=== PATIENT | male | born 1930 | race Caucasian/White ===

== ENCOUNTER 2019-04-11 13:58 | Outpatient (CLI) | payer MEDICARE, OTHER | END 2019-04-11 13:59 | disposition critical access hospital (66) | LOC: EMS 13:58 | PROVIDERS: ATTEND Surgery | DX: R46.4 Slowness and poor responsiveness (principal); R53.1 Weakness | CPT/HCPCS: A0425; A0429 ==

== ENCOUNTER 2019-04-11 14:12 | Inpatient (IN) | payer MEDICARE, OTHER ==
[2019-04-11] MEDS ORDERED: SODIUM CHLORIDE 0.9% 1,000 ML IV ONE ×3 (14:28→15:54)
[2019-04-11 14:50] LABS: BILIRUBIN,URINE NEGATIVE (NEGATIVE); GLUCOSE, URINE (UA) NEGATIVE (NEGATIVE); KETONES,URINE (UA) 15 mg/dL (NEGATIVE); LEUKOCYTE ESTERASE, URINE LARGE (NEGATIVE); NITRITE,URINE POSITIVE (NEGATIVE); OCCULT BLOOD,URINE LARGE (NEGATIVE); PROTEIN,URINE 100 mg/dL (NEGATIVE); UROBILINOGEN,URINE 0.2 (NORMAL) E.U./dL (NORMAL)
[2019-04-11 14:53] LABS: CLARITY,URINE CLOUDY (CLEAR)
[2019-04-11 14:54] LABS: BASOPHILS % (AUTO) 0.3 %; EOSINOPHILS % (AUTO) 0.3 %; HGB - HEMOGLOBIN 9.1 g/dL (14.0-18.0); LYMPHOCYTES # (AUTO) 0.3 10^3/uL (1.5-3.5); LYMPHOCYTES % (AUTO) 3.8 %; MEAN CORPUSCULAR HEMOGLOBIN 28.5 pg (27.0-31.0); MEAN CORPUSCULAR HGB CONC 31.2 g/dL (32.0-36.0); MEAN CORPUSCULAR VOLUME 91.5 fL (80.0-94.0); MEAN PLATELET VOLUME 9.6 fL (7.4-11.4); MONOCYTES # (AUTO) 0.6 10^3/uL (0.0-1.0); MONOCYTES % (AUTO) 7.5 %; NEUTROPHILS # (AUTO) 6.4 10^3/uL (1.5-6.6); NEUTROPHILS % (AUTO) 87.6 %; PLT - PLATELET COUNT 243 10^3/uL (130-450); RED BLOOD COUNT 3.19 10^6/uL (4.70-6.10); RED CELL DISTRIBUTION WIDTH 19.9 % (12.0-15.0); WHITE BLOOD COUNT 7.3 x10^3/uL (4.8-10.8)
--- NOTE | 2019-04-11 15:00 | ED Physician Documentation ---
History of Present Illness - Stated complaint Stated Complaint: DEC LOC - Chief complaint Chief Complaint: Neuro - History obtained from History obtained from: Patient, EMS - History of Present Illness Timing: Today Pain level max: 0 Pain level now: 0 Improved by: nothing Worsened by: nothing - Additonal information Additional information: Patient is an 88-year-old male with a history of prostate cancer and throat cancer. He lives at [facility]. They state that he had a mental status change today and became less responsive than usual. They state he normally walker and is interactive. He has had decreased p.o. intake recently as well. No fevers. They do not believe he has had any vomiting or diarrhea. Nothing makes this better or worse. They are unsure if he may have fallen or not, but they do not believe he did. Review of Systems Unable to obtain: AMS PD PAST MEDICAL HISTORY - Past Medical History Past Medical History: Yes Cardiovascular: High cholesterol Neuro: Peripheral neuropathy, Tremors, Other GI: Esophageal varices : Retention, Other Other Past Medical History: neuropathic bladder. prostate CA - Present Medications Home Medications: Ambulatory Orders Medication Instructions Recorded Confirmed Acetaminophen [Tylenol] 650 mg PO Q6H PRN 04/11/19 04/11/19 Ascorbic Acid 1,000 mg PO BID 04/11/19 04/11/19 Cranberry 1,000 mg PO BID 04/11/19 04/11/19 D-Mannose [Mannxtra] 1 tsp PO BID 04/11/19 04/11/19 - Allergies Allergies/Adverse Reactions: Allergies Allergy/AdvReac Type Severity Reaction Status Date / Time Penicillins Allergy Unknown Verified 04/11/19 14:20 - Social History Does the pt smoke?: No Smoking Status: Never smoker PD ED PE NORMAL - Vitals Vital signs reviewed: Yes - General General: No acute distress, Other (drowsy, arousable. Thin, frail.) - HEENT HEENT: Atraumatic, PERRL, Other (Dry lips and tongue) - Neck Neck: Supple, no meningeal sign - Cardiac Cardiac: RRR, Strong equal pulses - Respiratory Respiratory: No respiratory distress, Other (Rhonchi bilaterally) - Abdomen Abdomen: Soft, Non tender, Non distended - Derm Derm: Warm and dry - Extremities Extremities: No edema - Neuro Neuro: Other (Drowsy but arousable) - Psych Psych: Normal mood, Normal affect Results - Vitals Vitals: Vital Signs - 24 hr 04/11/19 04/11/19 04/11/19 14:12 14:42 15:31 Temperature 36.3 C L Heart Rate 96 98 92 Respiratory 21 22 22 Rate Blood Pressure 159/88 H 157/92 H 162/86 H O2 Saturation 96 97 97 04/11/19 16:00 Temperature Heart Rate 89 Respiratory 17 Rate Blood Pressure 167/94 H O2 Saturation 97 Oxygen O2 Source Room air - Labs Labs: Laboratory Tests 04/11/19 04/11/19 04/11/19 14:42 14:50 14:50 WBC 7.3 RBC 3.19 L Hgb 9.1 L Hct 29.2 L MCV 91.5 MCH 28.5 MCHC 31.2 L RDW 19.9 H Plt Count 243 MPV 9.6 Neut # (Auto) 6.4 Lymph # (Auto) 0.3 L [place] # (Auto) 0.6 Eos # (Auto) 0.0 Baso # (Auto) 0.0 Absolute Nucleated RBC 0.00 Nucleated RBC % 0.0 Sodium 140 Potassium 2.9 L Chloride 111 Carbon Dioxide 12 L* Anion Gap 17.0 H BUN 110 H* Creatinine 1.1 Estimated GFR (MDRD) 63 L Glucose 146 H Calcium 6.2 L* Total Bilirubin 1.0 AST 11 ALT < 10 L Alkaline Phosphatase 60 Total Protein 6.8 Albumin 2.8 L Globulin 4.0 Albumin/Globulin Ratio 0.7 L Lipase 30 TSH Urine Color YELLOW Urine Clarity CLOUDY Urine pH 6.0 Ur Specific Marine 1.010 Urine Protein 100 H Urine Glucose (UA) NEGATIVE Urine Ketones 15 H Urine Occult Blood LARGE H Urine Nitrite POSITIVE H Urine Bilirubin NEGATIVE Urine Urobilinogen 0.2 (NORMAL) Ur Leukocyte Esterase LARGE H Urine RBC 6-10 H Urine WBC >25 H Ur Squamous Epith Cells RARE Squamous Urine Bacteria Few Ur Microscopic Review INDICATED Urine Culture Comments INDICATED 04/11/19 14:50 WBC RBC Hgb Hct MCV MCH MCHC RDW Plt Count MPV Neut # (Auto) Lymph # (Auto) [place] # (Auto) Eos # (Auto) Baso # (Auto) Absolute Nucleated RBC Nucleated RBC % Sodium Potassium Chloride Carbon Dioxide Anion Gap BUN Creatinine Estimated GFR (MDRD) Glucose Calcium Total Bilirubin AST ALT Alkaline Phosphatase Total Protein Albumin Globulin Albumin/Globulin Ratio Lipase TSH 1.70 Urine Color Urine Clarity Urine pH Ur Specific Marine Urine Protein Urine Glucose (UA) Urine Ketones Urine Occult Blood Urine Nitrite Urine Bilirubin Urine Urobilinogen Ur Leukocyte Esterase Urine RBC Urine WBC Ur Squamous Epith Cells Urine Bacteria Ur Microscopic Review Urine Culture Comments - Rads (name of study) head CT Radiology: Prelim report reviewed, EMP read contemporaneously, See rad report (No acute intracranial abnormality) PD MEDICAL DECISION MAKING - ED course Complexity details: reviewed results, re-evaluated patient, considered differential, d/w pci security consultant ED course: 88-year-old male presents to the emergency department with altered mental status today. Has significant uremia, acidosis and urinary tract infection. He has a history of pharyngeal cancer and prostate cancer. Given Rocephin and vancomycin. Blood cultures drawn. Lactate normal. No acute findings on head CT. He has has care at [facility] usually, records were requested. Discussed the case with Dr. Ferreira, hospitalist who accepts. This document was made in part using voice recognition software. While efforts are made to proofread this document, sound alike and grammatical errors may occur. Patient also has significant hypocalcemia Departure - Departure Disposition: [facility] DC/Xfer Clinical Impression: Weakness, Uremia, Hypocalcemia, Metabolic acidosis Altered mental status Qualifiers: Altered mental status type: unspecified Qualified Code(s): R41.82 - Altered mental status, unspecified Anemia Qualifiers: Anemia type: unspecified type Qualified Code(s): D64.9 - Anemia, unspecified UTI (urinary tract infection) Qualifiers: Urinary tract infection type: acute cystitis Hematuria presence: without hematuria Qualified Code(s): N30.00 - Acute cystitis without hematuria Condition: Serious Discharge Date/Time: 04/11/19 17:10
[2019-04-11 15:03] LABS: BACTERIA,URINE Few /HPF (None Seen); SQUAMOUS EPITHELIAL CELL,UR RARE Squamous (<= Few)
[2019-04-11 15:27] LABS: ALBUMIN 2.8 g/dL (3.2-5.5); ALBUMIN/GLOBULIN RATIO 0.7 (1.0-2.2); ALKALINE PHOSPHATASE 60 IU/L (42-121); ALT ALANINE AMINOTRANSFERASE < 10 IU/L (10-60); AST ASPARTATE AMINOTRANSFERASE 11 IU/L (10-42); CHLORIDE 111 mmol/L (101-111); CREATININE 1.1 mg/dL (0.6-1.2); GFR - MDRD 63 (>89); GLUCOSE 146 mg/dL (70-100); LIPASE 30 U/L (22-51); SODIUM 140 mmol/L (135-145); TOTAL PROTEIN 6.8 g/dL (6.7-8.2)
[2019-04-11 15:29] LABS: BUN - BLOOD UREA NITROGEN 110 mg/dL (6-20); CALCIUM 6.2 mg/dL (8.5-10.3); CARBON DIOXIDE - CO2 12 mmol/L (21-32)
--- NOTE | 2019-04-11 15:49 | CT Report ---
Reason: altered mental status Procedure Date: 04/11/2019 Accession Number: [id number] / [id number] Procedure: CT - HEAD WO CPT Code: Final Report FULL RESULT: EXAM: CT HEAD EXAM DATE: 04/11/2019 03:28 PM. CLINICAL HISTORY: Altered mental status. COMPARISON: None. TECHNIQUE: Multiaxial CT images were obtained from the foramen magnum to the vertex. Reformats: Sagittal and coronal. IV contrast: None. In accordance with CT protocol optimization, one or more of the following dose reduction techniques were utilized for this exam: automated exposure control, adjustment of mA and/or KV based on patient size, or use of iterative reconstructive technique. FINDINGS: Parenchyma: No intraparenchymal hemorrhage. No evidence of mass, midline shift, or CT findings of acute infarction. Singer-white differentiation is distinct. Diffuse chronic microangiopathic white matter changes are evident. Extraaxial Spaces: Normal for age. No subdural or epidural collections identified. Ventricles: The ventricles and cortical sulci are enlarged, consistent with age-related tissue loss. Sinuses and orbits: Mucosal thickening seen at the bilateral maxillary sinuses. Other paranasal sinuses and mastoid air cells are clear. Leftward deviation of the nasal septum. Unremarkable orbits. Bones: No evidence of fracture or calvarial defect. Other: None. IMPRESSION: Generalized age-related cortical atrophic changes without evidence of acute intracranial abnormality. RADIA
[2019-04-11] MEDS ORDERED: VANCOMYCIN INJ 1 GM in SODIUM CHLORIDE 0.9% 500 ML IV STA (15:55)
[2019-04-11] MEDS ORDERED: cefTRIAXone 1 GM VIAL IVP STA (15:55)
[2019-04-11] MEDS ORDERED: ONDANSETRON 4 MG/2 ML VIAL IVP PRN (16:28)
[2019-04-11] MEDS ORDERED: ACETAMINOPHEN 325 MG TABLET PO PRN (16:28)
[2019-04-11] MEDS ORDERED: SODIUM CHLORIDE FLUSH 0.9% 10 ML SYRINGE IVP PRN (16:28)
--- NOTE | 2019-04-11 16:41 | HISTORY & PHYSICAL EXAMINATION ---
Chief Complaint - Chief Complaint Chief Complaint: AMS History of Present Illness - History of Present Illness HPI Comment/Other: is a 88-yrs-old male with a PMH significant for prostate cancer, CKD with hx of kidney failure, frequent UTI and dehydration, who present ER for complain of AMS. Pt is alert but confused and very poor historian. Pt was reported he had a mental status changed on today, he became less responsive than usual. I called pt's family. I left message to pt's daughter. I called pt's son, his pt's daughter in law report pt was always visited [facility]. he was discharged formerly [facility], then moved to [facility], and signed AMA from [facility] and D/C to [facility] 5 days ago. She report since last year February, pt continued to c omplain of nausea, diarrhea, and abdominal pain. she report pt has frequent UTI and dehydration. he had 5 times of UTI recently. She report they did not know pt has throat cancer. We will request medical record from [facility]. pt's CT of head is unremarkable. Route lab test in ER reveal BUN 110, creatinine 1.1, potassium 2.9, calcium 6.2, WBC is 7.3. UA analysis reveals pyuria and UTI. In ER, pt is afebrile, pt has slight elevated BP otherwise he is hemodynamic stable. pt is admitted for above medical reason. pt's daughter in law state he is DNR/DNI History - Past Medical History Cardiovascular: reports: High cholesterol Neuro: reports: Peripheral neuropathy, Tremors, Other GI: reports: Esophageal varices : reports: Retention, Other Other Past Medical History: neuropathic bladder. prostate CA - Family & Social History Family History Comment/Other: pt is confused, he could not provide family medical hx Social History Notes: pt is confused, he could not provide social hx Meds/Allgy - Home Medications Home Medications: Ambulatory Orders Medication Instructions Recorded Confirmed Acetaminophen [Tylenol] 650 mg PO Q6H PRN 04/11/19 04/11/19 Ascorbic Acid 1,000 mg PO BID 04/11/19 04/11/19 Cranberry 1,000 mg PO BID 04/11/19 04/11/19 D-Mannose [Mannxtra] 1 tsp PO BID 04/11/19 04/11/19 - Allergies Allergies/Adverse Reactions: Allergies Allergy/AdvReac Type Severity Reaction Status Date / Time Penicillins Allergy Unknown Verified 04/11/19 14:20 Review of Systems - All Other Systems All Other Systems: reports: Other (pt is confused, he could not provider any ROS) Exam - Vital Signs Vital Signs: Vital Signs x48h Temp Pulse Resp BP Pulse Ox 04/11/19 16:00 89 17 167/94 H 97 04/11/19 15:31 92 22 162/86 H 97 04/11/19 14:42 98 22 157/92 H 97 04/11/19 14:12 36.3 C L 96 21 159/88 H 96 - Physical Exam General Appearance: positive: No acute distress, Alert. negative: Lethargic Eyes Bilateral: positive: Normal inspection, PERRL, No lid inflammation ENT: positive: ENT inspection nml, Pharynx nml, No signs of dehydration. negative: Purulent nasal drainage, Oral lesions Neck: positive: Nml inspection, Thyroid nml, No JVD. negative: Trachea midline, Thyromegaly, Lymphadenopathy (R), Lymphadenopathy (L), Stiff neck, Tracheal deviation Respiratory: positive: Chest non-tender, No respiratory distress, Breath sounds nml. negative: Wheezes, Rales, Rhonchi Cardiovascular: positive: Regular rate & rhythm, No murmur, No gallop. negative: Irregularly irregular, Extrasystoles, Tachycardia, Bradycardia, JVD present, Systolic murmur, Diastolic murmur Peripheral Pulses: positive: 2+ Abdomen: positive: Non-tender, No organomegaly, Nml bowel sounds, No distention. negative: Tenderness, Guarding, Rebound Back: positive: Nml inspection. negative: CVA tenderness (R), CVA tenderness (L) Skin: positive: Color nml, No rash, Warm, Dry. negative: Cyanosis, Diaphoresis, Pallor Extremities: positive: Non-tender, Nml appearance. negative: Calf tenderness, Kong's sign/cords Neurologic/Psychiatric: positive: Sensation nml, Mood/affect nml. negative: Weakness, Sensory loss, Facial droop, Slurred/abnml speech Conclusion/Plan - Problem List (1) Altered mental status Conclusion/Plan: pt is likely to have UTI, uremia and significant dehydration, and pt's CT of head is unremarkable for acute finding. pt's AMS is likely caused by infection plus dehydration and uremia. treat underline UTI and dehydration with antibiotics, IVF neuro check lab and vital, and tele monitor pt Qualifiers: Altered mental status type: unspecified Qualified Code(s): R41.82 - Altered mental status, unspecified (2) UTI (urinary tract infection) Conclusion/Plan: pt has frequent UTI. UA culture is pending. treat with Rocephin now, followup UA culture. ER order blood culture, will followup as well. Qualifiers: Urinary tract infection type: acute cystitis Hematuria presence: without hematuria Qualified Code(s): N30.00 - Acute cystitis without hematuria (3) Uremia Conclusion/Plan: pt's BUN is 110, it is likely caused by dehydration. pt is reported to have poor appetite by his daughter in law, and he is living at nurse home. hydration by IVF, lab test to monitor (4) Dehydration Conclusion/Plan: pt has hx of kidney failure because of dehydration per pt's daughter in law report. hydration with IVF, and lab monitor consult with renal social worker. since pt's is living at [facility], and can not take care of pt. pt's family might need to increase caregiver to pt. (5) Hypocalcemia Conclusion/Plan: pt's calcium is 6.2, unknown etiology why pt's calcium is so lower. replaced with calcium gluconate and PO of calcium citrate. pt denies chest pain or palpitation. recheck with lab monitor, order EKG, will followup tele and vital monitor (6) Hypokalemia Conclusion/Plan: K is 2.9, replaced with oral and iVF of potassium. lab monitor (7) Elevated troponin Conclusion/Plan: pt has elevated troponin at 20. pt denies chest pain. will serial troponin test to monitor. it is likely from pt's dehydration. (8) Do not intubate, cardiopulmonary resuscitation (CPR)-only code status Conclusion/Plan: pt's daughter in law state pt is DNR/DNI - Lab Results Fish Bones: 04/11/19 14:50 04/11/19 14:50 Core Measures - Anticipated LOS I expect patient to be DC'd or transferred within 96 hours.: Yes - DVT/VTE - Prophylaxis VTE/DVT Device ordered at admit?: Yes VTE/DVT Prophylaxis med ordered at admit?: Yes
[2019-04-11] MEDS ORDERED: SODIUM CHLORIDE 0.9% 1,000 ML IV SCH (17:00)
[2019-04-11] MEDS: POTASSIUM CHLOR 10 MEQ/100 ML 10 MEQ/100 ML BAG IV SCH ×4 (17:31→20:16)
[2019-04-11] MEDS ORDERED: hydrALAZINE INJ 20 MG/ML VIAL IVP PRN (17:51)
[2019-04-11] MEDS: SODIUM CHLORIDE FLUSH 0.9% 10 ML SYRINGE IVP SCH (18:13)
[2019-04-11] MEDS: POTASSIUM CHLORIDE 20 MEQ TABLET PO STA ×2 (18:16→18:38)
[2019-04-11] MEDS: CALCIUM CITRATE 250 MG TABLET PO SCH ×2 (18:16→18:37)
[2019-04-11] MEDS: amLODIPine 5 MG TABLET PO SCH ×2 (18:16→18:36)
--- NOTE | 2019-04-11 20:45 | XRAY Report ---
Reason: cough Procedure Date: 04/11/2019 Accession Number: [id number] / [id number] Procedure: XR - Chest 1 View X-Ray CPT Code: 86494 Final Report FULL RESULT: EXAM: CHEST RADIOGRAPHY EXAM DATE: 04/11/2019 05:28 PM. CLINICAL HISTORY: Cough. COMPARISON: None available. TECHNIQUE: 1 view. FINDINGS: The lungs are hypoexpanded, which accentuates the cardiac silhouette and bronchovascular markings. Calcified plaque in the aortic arch. Retrocardiac gas and fluid collection likely representing a large hiatal hernia. Mild linear scarring/atelectasis in the left lung base. No focal consolidation. No pleural effusions or pneumothoraces. The bones are osteopenic. Partially visualized arthroplasty changes to the right shoulder. IMPRESSION: Low lung volumes. No evidence of focal pneumonia. Large hiatal hernia. RADIA
[2019-04-11] MEDS ORDERED: CALCIUM GLUCONATE 2,000 MG in SODIUM CHLORIDE 0.9% 100ML 100 ML IV SCH (21:00)
[2019-04-11 21:30] LABS: ALBUMIN 2.7 g/dL (3.2-5.5); ALBUMIN/GLOBULIN RATIO 0.7 (1.0-2.2); BILIRUBIN,TOTAL 1.1 mg/dL (0.2-1.0); TOTAL PROTEIN 6.8 g/dL (6.7-8.2)
--- NOTE | 2019-04-11 21:37 | PROVIDER PROGRESS NOTE ---
Asphalt Tile Floor Layer Note - Asphalt Tile Floor Layer Note Asphalt Tile Floor Layer Note: April 11, 2019 9:25 PM Nursing asked me to come evaluate the patient at 8:30 PM. He is becoming less and less responsive to voice. Eyes are rolled back into his head. He is getting increasingly tachypneic, with coarse gurgling lung sounds. I spoke to his daughter Teresa Jackson as well as his [id number] and son. Teresa lives in [place] and son lives in [place]. [id number] is a nurse. They describe a patient who is been admitted several times in the last year with episodes of acute renal failure, urinary retention, UTI. He will get encephalopathic, sometimes combative with his admissions. But within 24 to 48 hours start to respond, and improve. With his last admission he was transferred to a group home facility/assisted living facility for a couple of weeks. Was able to go home and leads a relatively normal life. He drives. Takes care of himself. They describe him as a very vivacious loving individual. But they have been trying to figure out why he has lost his appetite and is having problems eating since February. [facility] history and physical reviewed from nurse practitioner Ashwin. He presents with sudden encephalopathy, renal failure and a BUN of 110. His anion gap is 17 with a carbon dioxide of 12. However lactic acidosis is 1.1. Troponin is 20. White cell count was 7.3. Urinalysis had hematuria, pyuria, nitrites. Large amount of leukocyte Estrace. Rare squamous cells. Treatment has consisted of IV fluid resuscitation, and IV ceftriaxone. He is received about 3 L in. While he had minimal scant urine in the emergency room, his bladder is empty at this time. So is not producing any urine. On physical examination he is a 5 foot 10 elderly man who weighs 64 kg. Heart rate is 111, blood pressure 140/71 respirations 30. His respirations were 18 and 20 before. Blood pressure was was in the 170s. He is responsive to sternal rub, eyes are open and rolled in the back of his head, he is mouth breathing. Lung sounds have audible gurgling even without a stethoscope. He is tachypneic and using his rib cage muscles. PMI is normally placed, he is got a tachycardic regular rate and rhythm, no murmurs rubs or gallops. The abdomen is scaphoid, hypoactive bowel sounds, and there is no grimace of pain with deep palpation. I am not feeling a distended bladder. His arms and legs are cold. His legs are now with a purplish mottled hue that goes all the way up into the intertriginous folds of his groin, starting at his feet. Some of forearms. Assessment/plan This patient may be slipping into the early dying phase. He is not responding to IV fluids and IV antibiotics. I have spoken to his daughter Teresa at [phone]. I have also spoken to his son and daughter in law who lives in [place] and their number is [phone]. They have asked very pertinent questions. His daughter in law is an RN. I have explained that I do think that he is not responding to therapy and may be slipping away. In spite of IV fluids and antibiotics. I asked him if they wanted me to transition him to the ICU if needed, with the possibility of central line, pressors. He is a DO NOT RESUSCITATE and does not want intubation or CPR. After 3 conversations with his very concerned children, they have opted not to be more aggressive with treatment. They are asking me to emphasize comfort measures. As such I am continuing IV fluids, IV antibiotics, but will not transition the patient to the ICU. He has a CT of the abdomen pending and I will be canceling that. I will repeat CMP and lactic acid. Add levaguin.
[2019-04-11 21:42] LABS: CALCIUM 5.6 mg/dL (8.5-10.3)
[2019-04-11] MEDS ORDERED: levoFLOXacin 500 MG/100 ML 500 MG/100 ML BAG IV SCH (22:00)
[2019-04-11 23:19] LABS: CALCIUM 6.3 mg/dL (8.5-10.3)
[2019-04-12] MEDS: SODIUM CHLORIDE FLUSH 0.9% 10 ML SYRINGE IVP SCH ×3 (00:02→16:24)
[2019-04-12] MEDS ORDERED: CARBOXYMETHYLCELLULOSE OPHTH DROPS EACHEYE PRN (01:56)
[2019-04-12] MEDS: LORazepam 2 MG/ML VIAL IVP PRN ×3 (02:29→14:44)
[2019-04-12 05:48] LABS: BASOPHILS % (AUTO) 0.1 %; EOSINOPHILS % (AUTO) 0.3 %; HGB - HEMOGLOBIN 8.7 g/dL (14.0-18.0); LYMPHOCYTES # (AUTO) 0.4 10^3/uL (1.5-3.5); LYMPHOCYTES % (AUTO) 4.7 %; MEAN CORPUSCULAR HEMOGLOBIN 28.1 pg (27.0-31.0); MEAN CORPUSCULAR HGB CONC 31.1 g/dL (32.0-36.0); MEAN CORPUSCULAR VOLUME 90.3 fL (80.0-94.0); MEAN PLATELET VOLUME 9.7 fL (7.4-11.4); MONOCYTES # (AUTO) 0.8 10^3/uL (0.0-1.0); MONOCYTES % (AUTO) 8.7 %; NEUTROPHILS # (AUTO) 7.9 10^3/uL (1.5-6.6); NEUTROPHILS % (AUTO) 85.7 %; PLT - PLATELET COUNT 230 10^3/uL (130-450); RED CELL DISTRIBUTION WIDTH 20.2 % (12.0-15.0); WHITE BLOOD COUNT 9.2 x10^3/uL (4.8-10.8)
[2019-04-12 06:31] LABS: PLATELET ESTIMATE, MANUAL NORMAL (130-450,000) (NORMAL)
[2019-04-12] MEDS ORDERED: PANTOPRAZOLE 40 MG TABLET PO SCH (07:00)
--- NOTE | 2019-04-12 07:25 | PHARMACY PROGRESS NOTE ---
- Best Possible Medication History Admit Date and Time: 04/11/19 1628 Processed by: Nursing Medication History completed: Yes As the person ultimately responsible for medication therapy, providers are able to order a medication from an existing home medication list in [facility] via the "Reconcile Routine" prior to Confirmation of that medication by business support administrator. Such practice is discouraged except when the physician, in their clinical judgment, deems that a medical need exists for a medication without regard to previous use.
[2019-04-12] MEDS: CALCIUM CITRATE 250 MG TABLET PO SCH (08:20)
[2019-04-12] MEDS ORDERED: amLODIPine 5 MG TABLET PO SCH (09:00)
[2019-04-12] MEDS ORDERED: cefTRIAXone 2 GM in SODIUM CHLORIDE 0.9% MINIBAG 100 ML IV SCH (09:00)
[2019-04-12] MEDS ORDERED: ENOXAPARIN 40 MG/0.4 ML SYRINGE SUBQ SCH (09:00)
--- NOTE | 2019-04-12 10:43 | ADVANCE CARE PLANNING NOTE ---
Advance Care Planning - Planning Encounter Date: 04/12/19 Time: 10:43 Purpose: advance care plan for pt Parties in Attendance: pt's daughters, pt's son and pt's daughter in law and me Decisional Capacity of the Patient: pt is unresponsive, and can not make any decision. - Diagnosis for Encounter (1) Altered mental status Qualifiers: Altered mental status type: unspecified Qualified Code(s): R41.82 - Altered mental status, unspecified (2) UTI (urinary tract infection) Qualifiers: Urinary tract infection type: acute cystitis Hematuria presence: without hematuria Qualified Code(s): N30.00 - Acute cystitis without hematuria - Encounter Subjective/Patient's Story: pt on last night became unresponsive. pt's family was notified and came to hospital, and discussed with Dr. Childers for comfort measure only status. Today Bladder scan is done for pt, and pt continue anuria. I met with pt's daughter Teresa Jackson at the bedside, she continue to request comfortable measure only, d/c IVF, d/c antibiotics, d/c lab, d/ctele monitor, and without electrolytes replacement, and keep daily vital monitor as comfort measure only, and focus on her father's comfortable. I met all pt's family, son, daughter in law, daughters in pt's room, and I answered all questions, and concerns. All pt's family recognized and understood pt's severe medical problem, renal failure, anuria and pt is the way of dying, and they request hospice care, and pt is on the comfortable measure only status in the hospital. pt is referral to hospice now. Objective/Medical Story: pt is unresponsive now. pt has renal failure, he can not make urine, anuria. he has severe uremia, disturbed all major electrolytes including potassium, calcium, magnesium, chloride, plus pt has UTI infection. pt is not responsive fluids perfusion, and antibiotics treatment for his infection. he became unresponsive on last night. Dr. Childers on last night had extensive discussion with pt's whole family. whole family agreed comfortable measure only and today all they request hospice care as well. hospice is referral now. Goals of Care: advanced care plan for pt Plan: comfortable measure only in hospital, and referral to hospice care. Code Status: Do Not Attempt Resuscitation Time spent on advance care plannin
--- NOTE | 2019-04-12 10:55 | PROVIDER PROGRESS NOTE ---
Subjective - Prog Note Date Prog Note Date: 04/12/19 - Subjective Pt reports feeling: Worse Subjective: pt on last night became unresponsive. pt's family was notified and came to hospital, and discussed with Dr. Childers for comfort measure only status. Today Bladder scan is done for pt, and pt continue anuria. I met with pt's daughter Teresa Jackson at the bedside, she continue to request comfortable measure only, d/c IVF, d/c antibiotics, d/c lab, d/ctele monitor, and without electrolytes replacement, and keep daily vital monitor as comfort measure only, and focus on her father's comfortable. I met all pt's family, son, daughter in law, daughters in pt's room, and I answered all questions, and concerns. All pt's family recognized and understood pt's severe medical problem, renal failure, anuria and pt is the way of dying, and they request hospice care, and pt is on the comfortable measure only status in the hospital. pt is referral to hospice now. Current Medications - Current Medications Current Medications: Active Medications Acetaminophen (Tylenol) 650 mg PO Q4HR PRN PRN Reason: Pain 1 to 4 Levofloxacin (Levaquin 500 Mg/100 Ml) 500 mg in 100 mls @ 100 mls/hr IV Q48H [facility] Lorazepam (Ativan Inj (Vial)) 0.5 mg IVP Q2H PRN PRN Reason: Anxiety Last Admin: 04/12/19 10:59 Dose: 0.5 mg Morphine Sulfate (Morphine (Carpuject)) 2 mg IVP Q4H PRN PRN Reason: PAIN Ondansetron HCl (Zofran Inj) 4 mg IVP Q6HR PRN PRN Reason: Nausea / Vomiting Scopolamine HBr (Transderm-Scop) 1 patch TOP Q3D [facility] Last Admin: 04/12/19 11:31 Dose: 1 patch Sodium Chloride (Normal Saline Flush 0.9%) 10 ml IVP PRN PRN PRN Reason: NEEDED PER PROVIDER ORDERS Sodium Chloride (Normal Saline Flush 0.9%) 10 ml IVP 0100,0900,1700 [facility] Last Admin: 04/12/19 08:44 Dose: 10 ml Acetaminophen [Tylenol] 650 mg PO Q6H PRN 04/11/19 Ascorbic Acid 1,000 mg PO BID 04/11/19 Cranberry 1,000 mg PO BID 04/11/19 D-Mannose [Mannxtra] 1 tsp PO BID 04/11/19 Objective - Vital Signs/Intake & Output Vital Signs: Vital Signs x48h Temp Pulse Resp BP Pulse Ox 04/12/19 08:12 36.5 C 109 H 20 164/92 H 97 Intake & Output: Intake & Output 04/09/19 04/10/19 04/11/19 04/12/19 23:59 23:59 23:59 23:59 Intake Total 3417.493 200 Output Total 0 0 Balance 3417.493 200 - Objective General Appearance: positive: Alert, Mild distress, Lethargic Eyes Bilateral: positive: No lid inflammation, Other (pt is closeing his eyes and did not response word commands) ENT: positive: ENT inspection nml, No signs of dehydration. negative: Purulent nasal drainage Neck: positive: Nml inspection, Thyroid nml, No JVD, Trachea midline. negative: Thyromegaly, Lymphadenopathy (R), Lymphadenopathy (L), Stiff neck, Tracheal deviation Respiratory: positive: Chest non-tender, Rales. negative: No respiratory distress, Breath sounds nml, Wheezes Cardiovascular: positive: No murmur, No gallop, Irregularly irregular, Tachycardia. negative: Extrasystoles, Bradycardia, JVD present, Systolic mur mur, Diastolic murmur Peripheral Pulses: 2+ Radial (R), 2+ Radial (L), 2+ Dorsalis pedis (R), 2+ Dorsalis pedis (L) Abdomen: positive: Non-tender, No organomegaly, Nml bowel sounds, No distention. negative: Tenderness, Guarding, Rebound Back: positive: Nml inspection Skin: positive: Color nml, No rash, Warm, Dry. negative: Cyanosis, Diaphoresis, Pallor Extremities: positive: Non-tender, Nml appearance. negative: Calf tenderness, Kong's sign/cords Neurologic/Psychiatric: negative: Facial droop, Slurred/abnml speech - Lab Results Fish Bones: 04/12/19 05:40 04/12/19 05:40 Other Labs: Lab Results x24hrs 04/12/19 04/12/19 04/11/19 Range/Units 05:40 05:40 22:56 WBC 9.2 (4.8-10.8) x10^3/uL RBC 3.10 L (4.70-6.10) 10^6/uL Hgb 8.7 L (14.0-18.0) g/dL Hct 28.0 L (42.0-52.0) % MCV 90.3 (80.0-94.0) fL MCH 28.1 (27.0-31.0) pg MCHC 31.1 L (32.0-36.0) g/dL RDW 20.2 H (12.0-15.0) % Plt Count 230 (130-450) 10^3/uL MPV 9.7 (7.4-11.4) fL Neut # (Auto) 7.9 H (1.5-6.6) 10^3/uL Lymph # (Auto) 0.4 L (1.5-3.5) 10^3/uL Harper # (Auto) 0.8 (0.0-1.0) 10^3/uL Eos # (Auto) 0.0 (0.0-0.7) 10^3/uL Baso # (Auto) 0.0 (0.0-0.1) 10^3/uL Absolute Nucleated RBC 0.00 x10^3/uL Nucleated RBC % 0.0 /100WBC Manual Slide Review Indicated Platelet Estimate NORMAL (130-450,000) (NORMAL) RBC Morph Micro Appear 1+ OVALOCYTES (NORMAL) Sodium 140 (135-145) mmol/L Potassium 3.3 L (3.5-5.0) mmol/L Chloride 117 H (101-111) mmol/L Carbon Dioxide 10 L* (21-32) mmol/L Anion Gap 13.0 (6-13) BUN 112 H* (6-20) mg/dL Creatinine 1.0 (0.6-1.2) mg/dL Estimated GFR (MDRD) 70 L (>89) Glucose 105 H (70-100) mg/dL Lactic Acid (0.5-2.2) mmol/L Calcium 6.0 L* (8.5-10.3) mg/dL Magnesium 1.0 L* (1.7-2.8) mg/dL Total Bilirubin (0.2-1.0) mg/dL AST (10-42) IU/L ALT (10-60) IU/L Alkaline Phosphatase (42-121) IU/L Troponin I High Sens 25.2 H* (2.3-19.7) ng/L Total Protein (6.7-8.2) g/dL Albumin (3.2-5.5) g/dL Globulin (2.1-4.2) g/dL Albumin/Globulin Ratio (1.0-2.2) Lipase (22-51) U/L TSH (0.34-5.60) uIU/mL Urine Color Urine Clarity (CLEAR) Urine pH (5.0-7.5) PH Ur Specific [place] (1.002-1.030) Urine Protein (NEGATIVE) mg/dL Urine Glucose (UA) (NEGATIVE) mg/dL Urine Ketones (NEGATIVE) mg/dL Urine Occult Blood (NEGATIVE) Urine Nitrite (NEGATIVE) Urine Bilirubin (NEGATIVE) Urine Urobilinogen (NORMAL) E.U./dL Ur Leukocyte Esterase (NEGATIVE) Urine RBC (0-5) /HPF Urine WBC (0-3) /HPF Ur Squamous Epith Cells (<= Few) Urine Bacteria (None Seen) /HPF Ur Microscopic Review Urine Culture Comments 04/11/19 04/11/19 04/11/19 Range/Units 22:56 20:58 20:58 WBC (4.8-10.8) x10^3/uL RBC (4.70-6.10) 10^6/uL Hgb (14.0-18.0) g/dL Hct (42.0-52.0) % MCV (80.0-94.0) fL MCH (27.0-31.0) pg MCHC (32.0-36.0) g/dL RDW (12.0-15.0) % Plt Count (130-450) 10^3/uL MPV (7.4-11.4) fL Neut # (Auto) (1.5-6.6) 10^3/uL Lymph # (Auto) (1.5-3.5) 10^3/uL Harper # (Auto) (0.0-1.0) 10^3/uL Eos # (Auto) (0.0-0.7) 10^3/uL Baso # (Auto) (0.0-0.1) 10^3/uL Absolute Nucleated RBC x10^3/uL Nucleated RBC % /100WBC Manual Slide Review Platelet Estimate (NORMAL) RBC Morph Micro Appear (NORMAL) Sodium 140 140 (135-145) mmol/L Potassium 3.3 L 3.3 L (3.5-5.0) mmol/L Chloride 115 H 112 H (101-111) mmol/L Carbon Dioxide 8 L* 9 L* (21-32) mmol/L Anion Gap 17.0 H 19.0 H (6-13) BUN 110 H* 110 H* (6-20) mg/dL Creatinine 1.0 1.0 (0.6-1.2) mg/dL Estimated GFR (MDRD) 70 L 70 L (>89) Glucose 160 H 169 H (70-100) mg/dL Lactic Acid 1.9 (0.5-2.2) mmol/L Calcium 6.3 L* 5.6 L* (8.5-10.3) mg/dL Magnesium (1.7-2.8) mg/dL Total Bilirubin 1.1 H (0.2-1.0) mg/dL AST 13 (10-42) IU/L ALT 10 (10-60) IU/L Alkaline Phosphatase 61 (42-121) IU/L Troponin I High Sens (2.3-19.7) ng/L Total Protein 6.8 (6.7-8.2) g/dL Albumin 2.7 L (3.2-5.5) g/dL Globulin 4.1 (2.1-4.2) g/dL Albumin/Globulin Ratio 0.7 L (1.0-2.2) Lipase (22-51) U/L TSH (0.34-5.60) uIU/mL Urine Color Urine Clarity (CLEAR) Urine pH (5.0-7.5) PH Ur Specific [place] (1.002-1.030) Urine Protein (NEGATIVE) mg/dL Urine Glucose (UA) (NEGATIVE) mg/dL Urine Ketones (NEGATIVE) mg/dL Urine Occult Blood (NEGATIVE) Urine Nitrite (NEGATIVE) Urine Bilirubin (NEGATIVE) Urine Urobilinogen (NORMAL) E.U./dL Ur Leukocyte Esterase (NEGATIVE) Urine RBC (0-5) /HPF Urine WBC (0-3) /HPF Ur Squamous Epith Cells (<= Few) Urine Bacteria (None Seen) /HPF Ur Microscopic Review Urine Culture Comments 04/11/19 04/11/19 04/11/19 Range/Units 16:28 16:28 14:50 WBC (4.8-10.8) x10^3/uL RBC (4.70-6.10) 10^6/uL Hgb (14.0-18.0) g/dL Hct (42.0-52.0) % MCV (80.0-94.0) fL MCH (27.0-31.0) pg MCHC (32.0-36.0) g/dL RDW (12.0-15.0) % Plt Count (130-450) 10^3/uL MPV (7.4-11.4) fL Neut # (Auto) (1.5-6.6) 10^3/uL Lymph # (Auto) (1.5-3.5) 10^3/uL Harper # (Auto) (0.0-1.0) 10^3/uL Eos # (Auto) (0.0-0.7) 10^3/uL Baso # (Auto) (0.0-0.1) 10^3/uL Absolute Nucleated RBC x10^3/uL Nucleated RBC % /100WBC Manual Slide Review Platelet Estimate (NORMAL) RBC Morph Micro Appear (NORMAL) Sodium (135-145) mmol/L Potassium (3.5-5.0) mmol/L Chloride (101-111) mmol/L Carbon Dioxide (21-32) mmol/L Anion Gap (6-13) BUN (6-20) mg/dL Creatinine (0.6-1.2) mg/dL Estimated GFR (MDRD) (>89) Glucose (70-100) mg/dL Lactic Acid 1.1 (0.5-2.2) mmol/L Calcium (8.5-10.3) mg/dL Magnesium (1.7-2.8) mg/dL Total Bilirubin (0.2-1.0) mg/dL AST (10-42) IU/L ALT (10-60) IU/L Alkaline Phosphatase (42-121) IU/L Troponin I High Sens 20.0 H* (2.3-19.7) ng/L Total Protein (6.7-8.2) g/dL Albumin (3.2-5.5) g/dL Globulin (2.1-4.2) g/dL Albumin/Globulin Ratio (1.0-2.2) Lipase (22-51) U/L TSH 1.70 (0.34-5.60) uIU/mL Urine Color Urine Clarity (CLEAR) Urine pH (5.0-7.5) PH Ur Specific [place] (1.002-1.030) Urine Protein (NEGATIVE) mg/dL Urine Glucose (UA) (NEGATIVE) mg/dL Urine Ketones (NEGATIVE) mg/dL Urine Occult Blood (NEGATIVE) Urine Nitrite (NEGATIVE) Urine Bilirubin (NEGATIVE) Urine Urobilinogen (NORMAL) E.U./dL Ur Leukocyte Esterase (NEGATIVE) Urine RBC (0-5) /HPF Urine WBC (0-3) /HPF Ur Squamous Epith Cells (<= Few) Urine Bacteria (None Seen) /HPF Ur Microscopic Review Urine Culture Comments 04/11/19 04/11/19 04/11/19 Range/Units 14:50 14:50 14:42 WBC 7.3 (4.8-10.8) x10^3/uL RBC 3.19 L (4.70-6.10) 10^6/uL Hgb 9.1 L (14.0-18.0) g/dL Hct 29.2 L (42.0-52.0) % MCV 91.5 (80.0-94.0) fL MCH 28.5 (27.0-31.0) pg MCHC 31.2 L (32.0-36.0) g/dL RDW 19.9 H (12.0-15.0) % Plt Count 243 (130-450) 10^3/uL MPV 9.6 (7.4-11.4) fL Neut # (Auto) 6.4 (1.5-6.6) 10^3/uL Lymph # (Auto) 0.3 L (1.5-3.5) 10^3/uL Harper # (Auto) 0.6 (0.0-1.0) 10^3/uL Eos # (Auto) 0.0 (0.0-0.7) 10^3/uL Baso # (Auto) 0.0 (0.0-0.1) 10^3/uL Absolute Nucleated RBC 0.00 x10^3/uL Nucleated RBC % 0.0 /100WBC Manual Slide Review Platelet Estimate (NORMAL) RBC Morph Micro Appear (NORMAL) Sodium 140 (135-145) mmol/L Potassium 2.9 L (3.5-5.0) mmol/L Chloride 111 (101-111) mmol/L Carbon Dioxide 12 L* (21-32) mmol/L Anion Gap 17.0 H (6-13) BUN 110 H* (6-20) mg/dL Creatinine 1.1 (0.6-1.2) mg/dL Estimated GFR (MDRD) 63 L (>89) Glucose 146 H (70-100) mg/dL Lactic Acid (0.5-2.2) mmol/L Calcium 6.2 L* (8.5-10.3) mg/dL Magnesium (1.7-2.8) mg/dL Total Bilirubin 1.0 (0.2-1.0) mg/dL AST 11 (10-42) IU/L ALT < 10 L (10-60) IU/L Alkaline Phosphatase 60 (42-121) IU/L Troponin I High Sens (2.3-19.7) ng/L Total Protein 6.8 (6.7-8.2) g/dL Albumin 2.8 L (3.2-5.5) g/dL Globulin 4.0 (2.1-4.2) g/dL Albumin/Globulin Ratio 0.7 L (1.0-2.2) Lipase 30 (22-51) U/L TSH (0.34-5.60) uIU/mL Urine Color YELLOW Urine Clarity CLOUDY (CLEAR) Urine pH 6.0 (5.0-7.5) PH Ur Specific [place] 1.010 (1.002-1.030) Urine Protein 100 H (NEGATIVE) mg/dL Urine Glucose (UA) NEGATIVE (NEGATIVE) mg/dL Urine Ketones 15 H (NEGATIVE) mg/dL Urine Occult Blood LARGE H (NEGATIVE) Urine Nitrite POSITIVE H (NEGATIVE) Urine Bilirubin NEGATIVE (NEGATIVE) Urine Urobilinogen 0.2 (NORMAL) (NORMAL) E.U./dL Ur Leukocyte Esterase LARGE H (NEGATIVE) Urine RBC 6-10 H (0-5) /HPF Urine WBC >25 H (0-3) /HPF Ur Squamous Epith Cells RARE Squamous (<= Few) Urine Bacteria Few (None Seen) /HPF Ur Microscopic Review INDICATED Urine Culture Comments INDICATED ABX Reporting Has patient been on IV antibiotics over the past 48 hours?: No Assessment/Plan - Problem List (1) Comfort measures only status Impression: pt's family request comfortable measure only status for pt now. pt has been unresponsive since from last night, continue elevated severe uremia, disturbed electrolytes, and anuria plus acute UTI infection, dehydration. pt's family also request hospice care now, referral to hospice care. (2) unresponsive pt has been unresponsive since last night, it is likely caused by severe uremia, electrolytes disturbed, and anuria plus acute infection pt's family request hospice care now. referral to hospice care (3)anuria nurse report pt has anuria. order bladder scale which reveals 64ml urine in bladder scale over 24 hours. it is likely from pt's acute on chronic kidney failure (4)acute on chronic renal failure pt's daughter report pt has CKD, now pt is not responsive to fluids perfusion, continue elevated BUN and anuria, and disturbed electrolytes. (5) Altered mental status Conclusion/Plan: 04/12, worsen, no responsive. family chose hospice care. pt is likely to have UTI, uremia and significant dehydration, and pt's CT of head is unremarkable for acute finding. pt's AMS is likely caused by infection plus dehydration and uremia. treat underline UTI and dehydration with antibiotics, IVF neuro check lab and vital, and tele monitor pt (6) UTI (urinary tract infection) Conclusion/Plan: 04/12 family chose to stop antibiotics, hospice care pt has frequent UTI. UA culture is pending. treat with Rocephin now, followup UA culture. ER order blood culture, will followup as well. (7) Uremia Conclusion/Plan: 04/12 worsening, BUN is 112 now. pt's BUN is 110, it is likely caused by dehydration. pt is reported to have poor appetite by his daughter in law, and he is living at nurse home. hydration by IVF, lab test to monitor (8) Dehydration Conclusion/Plan: 04/12 family chose hospice care, and request stop IVF pt has hx of kidney failure because of dehydration per pt's daughter in law report. hydration with IVF, and lab monitor consult with social media community manager. since pt's is living at [facility], and can not take care of pt. pt's family might need to increase caregiver to pt. (9) Hypocalcemia Conclusion/Plan: 04/12 continue the problem, family chose hospice care, and request stop IVF pt's calcium is 6.2, unknown etiology why pt's calcium is so lower. replaced with calcium gluconate and PO of calcium citrate. pt denies chest pain or palpitation. recheck with lab monitor, order EKG, will followup tele and vital monitor (10) Hypokalemia Conclusion/Plan: 04/12 improved but continue the problem, family chose hospice care, and request stop IVF K is 2.9, replaced with oral and iVF of potassium. lab monitor (11) Elevated troponin Conclusion/Plan: pt has elevated troponin at 20. pt denies chest pain. will serial troponin test to monitor. it is likely from pt's dehydration. (12)hypomagnesemia 04/12 pt's mag is 1.1, family chose hospice care, and request stop IVFp (13) Do not intubate, cardiopulmonary resuscitation (CPR)-only code status Conclusion/Plan: pt's daughter in law state pt is DNR/DNI (2) Altered mental status Qualifiers: Altered mental status type: unspecified Qualified Code(s): R41.82 - Altered mental status, unspecified (3) UTI (urinary tract infection) Qualifiers: Urinary tract infection type: acute cystitis Hematuria presence: without hematuria Qualified Code(s): N30.00 - Acute cystitis without hematuria
[2019-04-12] MEDS ORDERED: SCOPOLAMINE PATCH TOP SCH (11:00)
[2019-04-12] MEDS ORDERED: levoFLOXacin 500 MG/100 ML 500 MG/100 ML BAG IV SCH (12:00)
[2019-04-12] MEDS: MORPHINE 2 MG/ML CARPUJECT IVP PRN (16:23)
[2019-04-13] MEDS: SODIUM CHLORIDE FLUSH 0.9% 10 ML SYRINGE IVP SCH ×3 (00:28→18:03)
[2019-04-13] MEDS: MORPHINE 2 MG/ML CARPUJECT IVP PRN ×5 (04:02→19:37)
[2019-04-13] MEDS: LORazepam 2 MG/ML VIAL IVP PRN ×2 (09:30→12:33)
--- NOTE | 2019-04-13 13:53 | PROVIDER PROGRESS NOTE ---
Subjective - Prog Note Date Prog Note Date: 04/13/19 - Subjective Pt reports feeling: Worse Subjective: pt is still unresponsive by verbal, and slight responsive to the pain stimulation. I meet pt's daughter solo at the bedside again. she understand and recognize her father is in the dying process and hope if it could facility the process quickly. I explain to her this is the nature process for people's , it could cost hours or days, hospice team will take pt on tomorrow. Then she understand and agree the care plan. she still want pt on comfortable measure only Current Medications - Current Medications Current Medications: Active Medications Acetaminophen (Tylenol) 650 mg PO Q4HR PRN PRN Reason: Pain 1 to 4 Lorazepam (Ativan Inj (Vial)) 0.5 mg IVP Q2H PRN PRN Reason: Anxiety Last Admin: 04/13/19 12:33 Dose: 0.5 mg Morphine Sulfate (Morphine (Carpuject)) 2 mg IVP Q4H PRN PRN Reason: PAIN Last Admin: 04/13/19 10:28 Dose: 2 mg Ondansetron HCl (Zofran Inj) 4 mg IVP Q6HR PRN PRN Reason: Nausea / Vomiting Scopolamine HBr (Transderm-Scop) 1 patch TOP Q3D [facility] Last Admin: 04/12/19 11:31 Dose: 1 patch Sodium Chloride (Normal Saline Flush 0.9%) 10 ml IVP PRN PRN PRN Reason: NEEDED PER PROVIDER ORDERS Sodium Chloride (Normal Saline Flush 0.9%) 10 ml IVP 0100,0900,1700 [facility] Last Admin: 04/13/19 09:30 Dose: 10 ml Acetaminophen [Tylenol] 650 mg PO Q6H PRN 04/11/19 Ascorbic Acid 1,000 mg PO BID 04/11/19 Cranberry 1,000 mg PO BID 04/11/19 D-Mannose [Mannxtra] 1 tsp PO BID 04/11/19 Objective - Vital Signs/Intake & Output Reviewed Vital Signs: Yes Vital Signs: Vital Signs x48h Temp Pulse Resp BP Pulse Ox 04/13/19 07:59 37 C 50 L 24 147/43 H 96 Intake & Output: Intake & Output 04/10/19 04/11/19 04/12/19 04/13/19 23:59 23:59 23:59 23:59 Intake Total 3417.493 200 0 Output Total 0 0 Balance 3417.493 200 0 - Objective General Appearance: positive: Moderate distress, Lethargic Eyes Bilateral: positive: Normal inspection, No lid inflammation ENT: positive: ENT inspection nml, Dry mucous membranes Neck: positive: Nml inspection, Trachea midline Respiratory: positive: Rhonchi. negative: No respiratory distress Cardiovascular: positive: Tachycardia Peripheral Pulses: 1+ Radial (R), 1+ Radial (L) Abdomen: positive: Non-tender Back: positive: Nml inspection Skin: positive: Color nml, No rash, Other (skin cold now) Extremities: positive: Nml appearance. negative: Joint swelling Neurologic/Psychiatric: negative: Facial droop - Lab Results Fish Bones: 04/12/19 05:40 04/12/19 05:40 ABX Reporting Has patient been on IV antibiotics over the past 48 hours?: No Assessment/Plan - Problem List (1) Comfort measures only status Impression: 04/13 continue comfortable measure only care. hospice team will take pt on tomorrow pt's family request comfortable measure only status for pt now. pt has been unresponsive since from last night, continue elevated severe uremia, disturbed electrolytes, and anuria plus acute UTI infection, dehydration. pt's family also request hospice care now, referral to hospice care. (2) unresponsive status 04/13 pt is still on unresponsive status, continue comfortable measure only. pt has been unresponsive since last night, it is likely caused by severe uremia, electrolytes disturbed, and anuria plus acute infection pt's family request hospice care now. referral to hospice care (3)anuria 04/13 nurse report they did another bladder scale, pt is still anuria. nurse report pt has anuria. order bladder scale which reveals 64ml urine in bladder scale over 24 hours. it is likely from pt's acute on chronic kidney failure (4)acute on chronic renal failure pt's daughter report pt has CKD, now pt is not responsive to fluids perfusion, continue elevated BUN and anuria, and disturbed electrolytes. (5) Altered mental status Conclusion/Plan: 04/12, worsen, no responsive. family chose hospice care. pt is likely to have UTI, uremia and significant dehydration, and pt's CT of head is unremarkable for acute finding. pt's AMS is likely caused by infection plus dehydration and uremia. treat underline UTI and dehydration with antibiotics, IVF neuro check lab and vital, and tele monitor pt (6) UTI (urinary tract infection) Conclusion/Plan: 04/12 family chose to stop antibiotics, hospice care pt has frequent UTI. UA culture is pending. treat with Rocephin now, followup UA culture. ER order blood culture, will followup as well. (7) Uremia Conclusion/Plan: 04/12 worsening, BUN is 112 now. pt's BUN is 110, it is likely caused by dehydration. pt is reported to have poor appetite by his daughter in law, and he is living at nurse home. hydration by IVF, lab test to monitor (8) Dehydration Conclusion/Plan: 04/12 family chose hospice care, and request stop IVF pt has hx of kidney failure because of dehydration per pt's daughter in law report. hydration with IVF, and lab monitor consult with social psychologist. since pt's is living at [facility], and can not take care of pt. pt's family might need to increase caregiver to pt. (9) Hypocalcemia Conclusion/Plan: 04/12 continue the problem, family chose hospice care, and request stop IVF pt's calcium is 6.2, unknown etiology why pt's calcium is so lower. replaced with calcium gluconate and PO of calcium citrate. pt denies chest pain or palpitation. recheck with lab monitor, order EKG, will followup tele and vital monitor (10) Hypokalemia Conclusion/Plan: 04/12 improved but continue the problem, family chose hospice care, and request stop IVF K is 2.9, replaced with oral and iVF of potassium. lab monitor (11) Elevated troponin Conclusion/Plan: pt has elevated troponin at 20. pt denies chest pain. will serial troponin test to monitor. it is likely from pt's dehydration. (12)hypomagnesemia 04/12 pt's mag is 1.1, family chose hospice care, and request stop IVFp (13) Do not intubate, cardiopulmonary resuscitation (CPR)-only code status Conclusion/Plan: pt's daughter in law state pt is DNR/DNI (2) Altered mental status Qualifiers: Altered mental status type: unspecified Qualified Code(s): R41.82 - Altered mental status, unspecified (3) UTI (urinary tract infection) Qualifiers: Urinary tract infection type: acute cystitis Hematuria presence: without hematuria Qualified Code(s): N30.00 - Acute cystitis without hematuria
[2019-04-14] MEDS: SODIUM CHLORIDE FLUSH 0.9% 10 ML SYRINGE IVP SCH ×2 (01:09→12:44)
[2019-04-14] MEDS: MORPHINE 2 MG/ML CARPUJECT IVP PRN (01:09)
--- NOTE | 2019-04-14 11:48 | Discharge Plan ---
"Discharge Plan for SNF / ONI - Discharge Plan And Transition Orders Problem Reviewed?: Yes Disposition: 03 SNF DC/Xfer Condition: Critical Allergies and Adverse Reactions: Allergies Allergy/AdvReac Type Severity Reaction Status Date / Time Penicillins Allergy Unknown Verified 04/11/19 14:20 Health Concerns: hospice care Plan of Treatment: pt is d/c to [facility] and followup hospice care Care Goals: hospice care Assessment: pt's family understood and agreed, pt will be d/c to [facility] for hospice care. - SNF / ONI Transition Orders Admit to (Facility): [facility] Under the care of (Name): Discharge Diagnosis: hospice care, uremia, unresponsive status, anuria, acute on chronic renal failure, UTI, hypocalcemia, hypokalemia, hypomagnesemia. Medicare Certification Statement: I do not certify that [facility] long term care is medically necessary on a continuing basis for any of the conditions for which she/he is receiving care during hospitalization. Notify PCP of admission and forward orders to primary provider for signature. Other Notification Orders: Call PCP immediately if patient develops dyspnea, chest pain/tightness or edema. Additional Bowel Program Orders: If no BM after 2 days, nurse may give M.O.M. 30ml PO PRN and/or ducolax Supp 1 VT and/or ALTAGRACIA 250mg P.O., and/or senna 1-2 tabs PO. On day 3 nurse may give repeat above order until residents constipation is resolved. Treatments & Other Orders: pt may continue hospice care Oxygen Orders: PRN Medication Orders: PLEASE REFER TO THE DISCHARGE MEDICATION LIST. Insulin Orders?: No - Medications New Prescriptions: LORazepam [Ativan] 0.5 mg PO Q6H PRN #15 tablet PRN Reason: Agitation Morphine Sulfate [Morphine Sulf Oral (Roxanol)] 5 mg PO Q2H PRN #30 ml PRN Reason: Pain/Dyspnea - Therapies | Activity Additional Instructions: followup hospice care"
[2019-04-14] MEDS ORDERED: levoFLOXacin 500 MG/100 ML 500 MG/100 ML BAG IV SCH (12:00)
--- NOTE | 2019-04-14 12:00 | DISCHARGE SUMMARY ---
"Discharge Summary Admit Date: 04/11/19 Discharge Date: 04/14/19 Discharging Provider: Pablo Christopher Primary Care Provider: Yogi Mccray Condition at Discharge: Critical Discharge Disposition: 03 SNF DC/Xfer Discharge Facility Name: [facility] - DIAGNOSES Admission Diagnoses: (1) Altered mental status (2) UTI (urinary tract infection) (3) Uremia (4) Dehydration (5) Hypocalcemia (6) Hypokalemia (7) Elevated troponin Discharge Diagnoses with Status of Each Condition: (1) hospice care pt became unresponsive status. pt's son, BASHIR, all families chose hospice care for pt. DPBRIAN agreed to d/c to [facility] for hospice care. Hospice care team accepted pt and will followup for care (2) unresponsive status pt became unresponsive status since the night of 04/11/2019. pt was not responsive fluid perfusion and antibiotic treatment. pt's family chose comfortable measure only in hospital, and hospice care after d/c from hospital. (3)anuria pt continue and remain anuria in the hospital course. US of bladder reveals anuria as well. discussed all treatment options with pt's family, family finally chose comfortable measure only in the hospital and followup hospice care after d/c (4) Uremia pt had BUN 110 at admission, continue elevated. Then pt became unresponsive s tatus. discussed all treatment options with pt's family, family finally chose comfortable measure only in the hospital and followup hospice care after d/c. (5)acute on chronic renal failure pt continue anuria in the hospital course. discussed all treatment options with pt's family, family finally chose comfortable measure only in the hospital and followup hospice care after d/c (6) UTI (urinary tract infection) pt was treated antibiotics initially. Per pt's family request, antibiotics was stopped for comfortable measure only. UA culture reveals positive for Staph. Aureus (7) Hypocalcemia pt presented severe hypocalcemia in the admission, pt was given calcium but continue to have hypocalcemia. family chose comfortable measure only in the hospital and followup hospice care after d/c (8) Hypokalemia pt presented hypokalemia in the admission, pt was given potassium but continue to have hypokalemia. family chose comfortable measure only in the hospital and followup hospice care after d/c (9) Elevated troponin pt present slight elevated troponin at the admission, and stable. (10)hypomagnesemia pt presented severe hypomagnesemia.family chose comfortable measure only in the hospital and followup hospice care after d/c - HPI History of Present Illness: is a 88-yrs-old male with a PMH significant for prostate cancer, CKD with hx of kidney failure, frequent UTI and dehydration, who present ER for complain of AMS. Pt is alert but confused and very poor historian. Pt was reported he had a mental status changed on today, he became less responsive than usual. I called pt's family. I left message to pt's daughter. I called pt's son, his pt's daughter in law report pt was always visited [facility]. he was discharged [facility], then moved to [facility], and signed AMA from [facility] and D/C to [facility] 5 days ago. She report since last year February, pt continued to complain of nausea, diarrhea, and abdominal pain. she report pt has frequent UTI and dehydration. he had 5 times of UTI recently. She report they did not know pt has throat cancer. We will request medical record from [facility]. pt's CT of head is unremarkable. Route lab test in ER reveal BUN 110, creatinine 1.1, potassium 2.9, calcium 6.2, WBC is 7.3. UA analysis reveals pyuria and UTI. In ER, pt is afebrile, pt has slight elevated BP otherwise he is hemodynamic stable. pt is admitted for above medical reason. pt's daughter in law state he is DNR/DNI - CONSULTS | PROCEDURES Consultations: hospice care Procedures: d/c for hospice care - HOSPITAL COURSE Hospital Course: pt was admitted for mental status changed, less responsive than usual. pt was found to have severe uremia, UTI infection, severe hypocalcemia, hypokalemia, and anuria. pt was treated with IVF for hydration and antibiotics for infection. pt became unresponsive in the night of 04/11/2019. pt's family was immediately contacted by the night physician. pt's family came to visit pt at the night. In the next day, pt's family chose comfortable measure only, and family chose hospice care for pt. Pt's DPOA finally agreed d/c to [facility] for hospice care. The detail hospital course is the the below: (1) hospice care pt became unresponsive status. pt's son, DPOA, all families chose hospice care for pt. DPOA agreed to d/c to [facility] for hospice care. Hospice care team accepted pt and will followup for care (2) unresponsive status pt became unresponsive status since the night of 04/11/2019. pt was not responsive fluid perfusion and antibiotic treatment. pt's family chose comfortable measure only in hospital, and hospice care after d/c from hospital. (3)anuria pt continue and remain anuria in the hospital course. US of bladder reveals anuria as well. discussed all treatment options with pt's family, family finally chose comfortable measure only in the hospital and followup hospice care after d/c (4) Uremia pt had BUN 110 at admission, continue elevated. Then pt became unresponsive status. discussed all treatment options with pt's family, family finally chose comfortable measure only in the hospital and followup hospice care after d/c. (5)acute on chronic renal failure pt continue anuria in the hospital course. discussed all treatment options with pt's family, family finally chose comfortable measure only in the hospital and followup hospice care after d/c (6) UTI (urinary tract infection) pt was treated antibiotics initially. Per pt's family request, antibiotics was stopped for comfortable measure only. UA culture reveals positive for Staph. Aureus (7) Hypocalcemia pt presented severe hypocalcemia in the admission, pt was given calcium but continue to have hypocalcemia. family chose comfortable measure only in the hospital and followup hospice care after d/c (8) Hypokalemia pt presented hypokalemia in the admission, pt was given potassium but continue to have hypokalemia. family chose comfortable measure only in the hospital and followup hospice care after d/c (9) Elevated troponin pt present slight elevated troponin at the admission, and stable. (10)hypomagnesemia pt presented severe hypomagnesemia.family chose comfortable measure only in the hospital and followup hospice care after d/c - ALLERGIES Allergies/Adverse Reactions: Allergies Allergy/AdvReac Type Severity Reaction Status Date / Time Penicillins Allergy Unknown Verified 04/11/19 14:20 - MEDICATIONS Home Medications: Ambulatory Orders Medication Instructions Recorded Confirmed Acetaminophen [Tylenol] 650 mg PO Q6H PRN 04/11/19 04/11/19 Ascorbic Acid 1,000 mg PO BID 04/11/19 04/11/19 Cranberry 1,000 mg PO BID 04/11/19 04/11/19 D-Mannose [Mannxtra] 1 tsp PO BID 04/11/19 04/11/19 LORazepam [Ativan] 0.5 mg PO Q6H PRN #15 tablet 04/14/19 Morphine Sulfate [Morphine Sulf 5 mg PO Q2H PRN #30 ml 04/14/19 Oral (Roxanol)] - PHYSICAL EXAM AT DISCHARGE General Appearance: positive: Moderate distress, Lethargic Eyes Bilateral: positive: No lid inflammation ENT: positive: Dry mucous membranes Neck: positive: Nml inspection, Thyroid nml, Trachea midline. negative: Thyromegaly, Lymphadenopathy (R), Lymphadenopathy (L) Respiratory: positive: Rales Cardiovascular: positive: Tachycardia Peripheral Pulses: positive: 1+ Abdomen: positive: Abnml bowel sounds Back: positive: Nml inspection Skin: positive: Color nml, Dry Neurologic/Psychiatric: negative: Facial droop - LABS Result Diagrams: 04/12/19 05:40 04/12/19 05:40 - FOLLOW UP Follow Up: pt may followup hospice care in the [facility] - TIME SPENT Time Spent in Discharge (Minutes): 40"
[2019-04-14 13:03] VITALS: BP 133/84
== END 2019-04-14 13:01 | disposition hospice, inpatient (51) | DRG 682 ==
LOC: ED 14:12 → MS2 16:28
PROVIDERS: ADMIT Nurse Practitioner Gerontology; ATTEND Nurse Practitioner Gerontology
DX: N19 Unspecified kidney failure (principal); R34 Anuria and oliguria; E87.2 Acidosis; R40.20 Unspecified coma; D64.9 Anemia, unspecified; N17.9 Acute kidney failure, unspecified; N30.00 Acute cystitis without hematuria; N18.9 Chronic kidney disease, unspecified; N31.9 Neuromuscular dysfunction of bladder, unspecified; R33.9 Retention of urine, unspecified; E83.51 Hypocalcemia; E87.6 Hypokalemia; E83.42 Hypomagnesemia; E86.0 Dehydration; G62.9 Polyneuropathy, unspecified; R25.1 Tremor, unspecified; R79.89 Other specified abnormal findings of blood chemistry; Z66 Do not resuscitate; Z51.5 Encounter for palliative care; Z85.46 Personal history of malignant neoplasm of prostate; Z85.819 Personal history of malignant neoplasm of unspecified site of lip, oral cavity, and pharynx; Z87.440 Personal history of urinary (tract) infections
CPT/HCPCS: 36415; 51701; 70450; 71045; 80048; 80053; 81001; 83605; 83690; 83735; 84443; 84484; 85025; 87040; 87086; 87181; 96360; 99285; A9270; J1650; J2060; J3370; J3490; 81003; 84153; 84154

== ENCOUNTER 2019-04-14 13:05 | Outpatient (CLI) | payer MEDICARE, OTHER | END 2019-04-14 13:06 | disposition hospice, inpatient (51) | LOC: EMS 13:05 | PROVIDERS: ATTEND Surgery | DX: R40.20 Unspecified coma (principal) | CPT/HCPCS: A0425; A0428 ==